=== PATIENT | female | born 1970 | race Caucasian/White ===

== ENCOUNTER 2025-03-01 12:51 | Day surgery (SDC) | payer OTHER ==
[2025-02-28 13:42] VITALS: BMI 29.1
[2025-03-01 13:25] VITALS: RESP 18; TEMP 98
[2025-03-01 15:24] VITALS: BP 129/74; PULSE 67
== END 2025-03-01 15:05 | disposition home or self-care (01) ==
LOC: FASU-ENDO 12:51
PROVIDERS: ATTEND Internal Medicine Gastroenterology
PROC: 0DJD8ZZ Inspection of Lower Intestinal Tract, Via Natural or Artificial Opening Endoscopic (ICD-10-PCS; principal; 2025-03-01 14:00)
DX: Z12.11 Encounter for screening for malignant neoplasm of colon (principal); K57.30 Diverticulosis of large intestine without perforation or abscess without bleeding; K64.1 Second degree hemorrhoids